=== PATIENT | male | born 1995 | race Caucasian/White ===

== ENCOUNTER 2023-03-21 21:39 | Emergency (ER) | payer OTHER ==
[~2023-03-21] VITALS: Ht 172.7 cm; Wt 108.9 kg
[2023-03-21 21:56] VITALS: BP_SYST 146; PULSE 61; RESP 19; TEMP 97.6; O2SAT 98
[2023-03-21] MEDS ORDERED: PRED20TA PO (22:17)
[2023-03-21] MEDS ORDERED: DIPH25CA83 PO (22:17)
[2023-03-21 22:40] VITALS: BP_SYST 143; PULSE 59; RESP 19; TEMP 97.9; O2SAT 98
== END 2023-03-21 22:40 | disposition home or self-care (01) ==
LOC: SED 21:39
DX: T78.02XA Anaphylactic reaction due to shellfish (crustaceans), initial encounter (principal); Z79.899 Other long term (current) drug therapy
CPT/HCPCS: 99283

== ENCOUNTER 2023-04-04 17:39 | Emergency (ER) | payer OTHER ==
[~2023-04-04 17:39] MED LIST: DIPH25CA83 PO; PRED20TA PO
== END 2023-04-04 18:56 | disposition left against medical advice (07) ==
LOC: SED 17:39
DX: S89.92XD Unspecified injury of left lower leg, subsequent encounter (principal); Z53.21 Procedure and treatment not carried out due to patient leaving prior to being seen by health care provider; X58.XXXD Exposure to other specified factors, subsequent encounter